=== PATIENT | female | born 1995 | race Caucasian/White ===

== ENCOUNTER 2017-07-22 10:44 | Day surgery (SDC) | payer OTHER ==
--- NOTE | 2017-07-21 08:42 | PDGENHP ---
History and Physical - Chief Complaint LEFT Hip Pain - History of Present Illness Diagnosis: 1. Bilateral~Femoroacetabular impingement (NINA) mixed-type on the Right, pincer-type remaining on Left with labral tear and cartilage damage 2. Left~Early Osteoarthritis HISTORY OF PRESENT ILLNESS: Merlinis a 22 y.o.~active female~who I have had the pleasure to consult on today. I have enjoyed meeting her. She~lives in [place]. 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 ~She~is single; she~has no~children. ~Merlinenjoys high jumping, lifting, running (lost college scholarship for high jumping because of hip). Catia's left~hip pain started May of 2015, with some~recalled trauma or injury, and with no~previous complaints. Merlindoes not have~a known history of hip dysplasia. No PT at that time, but had MRI and referred to [facility] who did hip scope 08/13 and then rehabbed after. Started running and felt great/ competing again at 3 and 6 months respectively. Then noted gradual return of anterior left groin pain - by September of 2016 was fully returned. MRI repeated and [facility] revision labral repair and pincer/cam resection. Did PT again and has not been able to return to running. Presentation today is of anterior left~hip pain.. ~The hip does~wake her~at night and does~click and catch on her. Sitting can be a real struggle~for her. Merlindoes not~report suffering from lower back pain episodes. Merlinhas~participated in physical therapy and has~tried other conservative measures including hip injections (last one 10/13 - 90% relief for 3 days only . She~has not~received sufficient symptomatic improvement. Merlinhas~utilized medication for pain management, including NSAID, OTC acetaminophen and Vicodin. Merlinhas stopped taking these all together now. Merlindenies issues with the right~hip. ~ Merlinunderstands that she~has a hip and pelvis problem which should be researched and wishes to get a better understanding of her~hip status, followed by an establishment of a treatment strategy, hoping she~would be able to get back to her~well being active life. History: Past medical history: ~ Patient ~has a past medical history of Anxiety; Asthma; Labral tear of hip, degenerative; Mandibular dysfunction; and PONV (postoperative nausea and vomiting). Relevant familial history: None which is relevant Past surgical history: R hip arthroscopy for psoas release - 2012, L hip artthroscopy labral repair 07/2015, revision L hip scope with labral repair 12/13/16 Catia~describes problematic issues with general anesthesia which includes PONV. I have reviewed, verified and agree with the past medical, surgical, family and social history. Current Medications:~has a current medication list which includes the following prescription(s): celecoxib, escitalopram oxalate, hydrocodone-acetaminophen, norethindrone ac-ethi estrad, ondansetron, and ondansetron. ALLERGIES:~has No Known Allergies. Objective: Physical Examination: Merlinis 5~feet 9~inches tall and weighs 160~Lbs. Merlinis AAO x3; she~is well -nourished, in NAD. Skin is warm and dry. ~Breathing is non-labored. CV with RRR by pulse. Abdomen is soft, NTND. Currently, she~walks with a normal~gait. Trendelenburg sign is positive~and proprioception is reduced, both~sides. She~presents with mild~signs of joint laxity. Beightons Score: 4 She~is fit looking. ~~ Lower spine examination is negative~for sciatic or femoral nerve irritation with negative~SLR &~femoral stretch tests. Range of motion of the spine is normal~for flexion, extension, and rotations, with no~associated pain. Strength, Sensation and pulses are normal, except reduced in L LFCN Ankles and knees exams are normal~and no~mal-alignment is evident. She~has no leg length discrepancy. Thigh circumference is symmetric~with no evidence for muscle atrophy~on both~ sides. Hip ROM (degrees): FL ER At 90~hip FL IR At 90~hip FL AB AD EX IR Neutral hip ER Neutral hip R 95 45 5 35 5 5 50 40 L 100(pain) 45 15 (pain) 35 5 5 55 35 Specific hip and pelvis tests: Impingement Test DALIA Roll Add. Longus R Negative Negative Negative Negative L +++ +++ Negative +++ Glut. Med ITB Posterior Imp R Negative 5/5 strength Negative 5/5 strength Negative L Negative 5/5 strength Negative 5/5 strength Negative Squeeze test measured weak Bony Symphysis pubis is pain free~to touch while concentric activity of the rectus abdominis, does not~produce pain at its insertion. Ilio Psos specific tests are positive for pain during cycling for the left hip~ and remarkable for painful snap HF has no pain both hips. - but weak on the left Anterior left~capsule tenderness only Greater trochanteric burse is pain free~on both hips. Piriformis tests: FAIR is negative, with no~local signs of neuritis related to sciatic nerve. SIJs examination is normal~with normal~DALIA in relation and local tenderness. Hamstrings tests are negative both hips. On a daily basis, the following percentages reflect Catia's overall total pain: Deep anterior~hip: 80% Adductors/IP: 20% Imaging: Radiology studies which I have personally reviewed, analyzed and measured are below: XR: AP of the hip and pelvis: Performed in a good~technique Coccyx to pubic symphysis distance 1.7~cm. 8~degrees cephal, 0 degrees in parenthesis [place] Lines are preserved. No~Pathological signs are seen in the Symphysis Pubis. No~Pathological signs are seen at the Ischial tuberosity. ~ Specific measurements show: NSA~ LCE Sourcil~Angle Sharp's angle Lat. Cam Lat. Pincer C.Over~sign Head~Coverage % ATDmm R 131 44 (47) -3 35 N + 1 o'clock 100 + L 128 45 (42) -10 36 N + 1 o'clock 91.3 + Pos. wall sign ISS NAD ~~Dysplasia Comments R Negative + 9.3~mm Negative L Negative Negative 14~mm Negative Sclerosis Sup. Lat. OA Cysts Joint Space-WBZ Joint Space-Medial R Negative Negative Negative 3.4~mm 3.6~mm L + + Negative 2.8~mm 3.4~mm X Table lateral: Anterior cam lesion is seen~on the right hip. Alpha Angle: ~ Right 58~dergrees Left 43~degrees MRI shows: 09/2016 - (from before revision hip scope) shows small pincer type labrum with tear. Some anterior cartilage damage and NARROWING with no subchondral cysts or edema. CT: no sub chondral cysts MEASUREMENTS: Right hip: Lateral center edge angle: 43 degrees Anterior center edge angle: 67 degrees Equ[place] acetabular version angle: 12 degrees anteverted. Cranial acetabular version angle: 3 degrees retroverted. Femoral neck shaft angle: 132 degrees Femoral neck version angle: Anteverted 11 degrees Femoral shaft torsion angle: Medialized 22 degrees Left hip: Lateral center edge angle: 40 degrees Anterior center edge angle: 59 degrees Equatorial acetabular version angle: 18 degrees anteverted. Cranial acetabular version angle: 5 degrees anteverted. Femoral neck shaft angle: 134 degrees Femoral neck version angle: Anteverted 8 degrees Femoral shaft torsion angle: Medialized 29 degrees Impression and plan: Merlinis a 22 y.o.~active female~suffering from symptomatic Left~hip pain due to Left~Femoroacetabular impingement (NINA) Pincer type, Cartilage damage~ causing significant disability to her~and altering her~sport and life activities. Physical examination, imaging, and her~story correspond with the diagnosis mentioned above. I explained that femoroacetabular impingement (NINA) arises due to a bony or soft tissue conflict between the femur (ball) and acetabulum (socket) caused by an abnormality in the shape of the hip joint. Over time, repetitive impingement can result in damage to the labrum and adjacent surface cartilage within the socket, ultimately giving rise to progressive osteoarthritis of the hip. I explained that although a labral tear can be a source of pain, it is rarely the root of the problem and typically occurs secondary to an underlying abnormality in the shape and mechanics of the hip joint. ~ I reviewed conservative treatment options for NINA including activity modification to avoid positions of impingement, physical therapy, non-steroidal anti-inflammatory medications, and various injections (corticosteroid and PRP) aimed at reducing inflammation in the hip joint or/and preventing dynamic impingement. PRP injections may promote healing and reduce symptoms in certain cases but it will not repair chronically damaged tissue. Although these measures may help to buy time and reduce current level of symptoms, they are not a definitive solution to the problem given the underlying abnormality in the shape of the hip joint. Patients who have failed conservative management or previous surgeries and continue to experience symptoms are candidates for revision hip arthroscopy, a minimally invasive surgery that can definitively address the underlying problem. Hip arthroscopy typically includes treating the labrum with either repair or reconstruction of the torn labrum; as well as addressing the underlying abnormalities by restoring the normal shape to the hip joint. ~If the cartilage is damaged a Microfracture~surgical procedure may also be necessary to help stimulate the growth of fibrocartilage. ~If a patient requires a labral reconstruction or a Microfracture, the initial rehabilitation from the surgery may take longer, but the termite helper results are typically favorable. I reviewed the technical aspects of hip arthroscopy including risks, benefits, and expected course of recovery. Catia understands that hip arthroscopy is a minimally invasive outpatient procedure carried out through small incisions on the outer aspect of the hip joint. During surgery, the labral tear will be identified and either repaired or reconstructed using bone anchors and suture material. Additionally, any excessive bone will be removed with a high-speed urmila to reshape the hip joint and restore normal anatomy. Risks include infection, bleeding, injury to nearby nerves or vessels, stiffness, persistent pain, instability, venous thromboembolic disease, and traction related complications including temporary foot numbness. Rarely, revision surgery may be required to address these problems. Overall recovery takes approximately 4 8 months depending on the extent of damage and degree of repair. In the event that the labral tissue quality is inadequate for successful repair and healing, Catia understands that a labral reconstruction will be performed. This procedure entails placing a cadaver tissue graft within the hip joint and stabilizing it with bone anchors to build a new labrum. The overall recovery time for labral reconstruction is similar to that of labral repair, although the surgical procedure takes longer to perform. Catia~will review the info presented. In order to obtain more detailed information regarding the alignment, orientation, and shape of the bony hip and pelvis I will order a CT scan to be performed. The results of the CT scan, including femoral torsion and acetabular version measured values and 3D images, will aid me in deciding on the best treatment strategy and surgical pre-planning. Catia is going to think about her options and get back to us. Catia~is happy with this plan. I have also supplied her~with handouts, outlining the expected surgical treatment and rehab involved. I wish~Catia~all the best, ~~ Olga Merritt MD History Information - Allergies/Home Medication List Allergies/Adverse Reactions: No Known Allergies Allergy (Unverified 06/30/17 10:31) Home Medications: Lexapro 06/30/17 [Last Taken Unknown] Microgestin 06/30/17 [Last Taken Unknown] I have personally reviewed and updated: medical history - Social History Smoking Status: Never smoked Review of Systems Review of Systems: Physical Exam Physical Exam:
[~2017-07-22 10:44] MED LIST: ACETAMINOPHEN 500 MG TAB PO ONE; PREGABALIN 150 MG CAP PO ONE; ceFAZolin 2 GM/SWFI 2 GM/20 ML SYR IVP ONE
[2017-07-22] MEDS ORDERED: fentaNYL 100 MCG/2 ML INJ ONE ×3 (10:50→15:33)
[2017-07-22] MEDS ORDERED: PROPOFOL 200 MG/20 ML VIAL ONE (10:50)
[2017-07-22] MEDS ORDERED: PROPOFOL/EMULSION 500 MG/50 ML BOTTLE IV ONE ×2 (10:50→14:02)
[2017-07-22] MEDS ORDERED: LR 1,000 ML IV ONE (10:50)
[2017-07-22] MEDS ORDERED: ROCURONIUM 50 MG/5 ML VIAL ONE (10:52)
[2017-07-22] MEDS ORDERED: LIDOCAINE 2% 5 ML SDV ONE (10:52)
[2017-07-22] MEDS ORDERED: SCOPOLAMINE HYDROBROMIDE 1 MG/3 DAYS PATCH TD ONE (10:56)
[2017-07-22] MEDS ORDERED: MIDAZOLAM 2 MG/2 ML VIAL ONE (11:05)
[2017-07-22] MEDS ORDERED: MIDAZOLAM 2 MG/2 ML VIAL IVP ONE (11:09)
--- NOTE | 2017-07-22 11:09 | PDANEPAE ---
ANE History of Present Illness 22 year old female for hip scope. ANE Past Medical History - Cardiovascular History Hx Hypertension: No Hx Arrhythmias: No Hx Chest Pain: No Hx Coronary Artery / Peripheral Vascular Disease: No Hx CHF / Valvular Disease: No Hx Palpitations: No - Pulmonary History Hx COPD: No Hx Asthma/Reactive Airway Disease: Yes Hx Recent Upper Respiratory Infection: No Hx Oxygen in Use at Home: No Hx Sleep Apnea: No Sleep Apnea Screening Result - Last Documented: Negative Pulmonary History Comment: CHILDHOOD ASTHMA - Neurologic History Hx Cerebrovascular Accident: No Hx Seizures: No Hx Dementia: No - Endocrine History Hx Diabetes: No Hypothyroid: No Hyperthyroid: No Obesity: no - Renal History Hx Renal Disorders: No - Liver History Hx Hepatic Disorders: No - Neurological & Psychiatric Hx Hx Neurological and Psychiatric Disorders: Yes Neurological / Psychiatric History Comment: ANXIETY - Cancer History Hx Cancer: No - Congenital Disorder History Hx Congenital Disorders: No - GI History Hx Gastrointestinal Disorders: No - Other Health History Other Health History: NEG - Chronic Pain History Chronic Pain: Yes (L HIP) - Surgical History Prior Surgeries: R HIP SCOPE. L HIP SCOPE X2. WISDOM ANE Review of Systems Review of systems is: negative Review of Systems: - Exercise capacity Exercise capacity: >=4 METS METS (RN): 6 METS ANE Patient History - Allergies Allergies/Adverse Reactions: No Known Allergies Allergy (Verified 07/22/17 11:01) - Home Medications Home medications: home medication list seen and reviewed Home Medications: Lexapro 06/30/17 [Last Taken Unknown] Microgestin 06/30/17 [Last Taken Unknown] - NPO status NPO Status: no food or drink >8 hours NPO Since - Liquids (Date): 07/21/17 NPO Since - Liquids (Time): 23:00 NPO Since - Solids (Date): 07/21/17 NPO Since - Solids (Time): 19:00 - Anes Hx Anes Hx: post operative nausea and vomiting - Smoking Hx Smoking Status: Never smoked Marijuana use: No - Family Anes Hx Family Anes Hx: neg - N/A Family Hx Anesthesia Complications: FATHER AWAKENS VERY SLOWLY ANE Labs/Vital Signs - Vital Signs Vital Signs: reviewed preoperatively; see RN documention for details Blood Pressure: 127/85 Heart Rate: 75 Respiratory Rate: 16 O2 Sat (%): 99 Height: 177.8 cm Weight: 74.843 kg ANE Physical Exam - Airway Neck exam: FROM Mallampati Score: Class 1 Mouth exam: normal dental/mouth exam - Pulmonary Pulmonary: no respiratory distress - Cardiovascular Cardiovascular: regular rate and rhythym - ASA Status ASA Status: II ANE Anesthesia Plan Anesthesia Plan: general endotracheal anesthesia Total IV Anesthesia: No
[2017-07-22] MEDS ORDERED: BUPIVACAINE 0.25% 30 ML SDV ONE (11:23)
[2017-07-22] MEDS ORDERED: EPINEPHrine 30 MG/30 ML MDV (0.1 MG/0.1 ML) ONE (11:23)
[2017-07-22] MEDS ORDERED: DEXAMETHASONE 4 MG/ML VIAL ONE (11:52)
[2017-07-22] MEDS ORDERED: ONDANSETRON 4 MG/2 ML VIAL ONE (11:52)
[2017-07-22] MEDS ORDERED: HYDROmorphONE/DILAUDID 2 MG/ML INJ ONE ×2 (14:32→16:03)
[2017-07-22] MEDS ORDERED: PROMETHAZINE HCL 25 MG/ML INJ IVP PRN (14:35)
[2017-07-22] MEDS ORDERED: LR 500 ML IV PRN (14:35)
[2017-07-22] MEDS ORDERED: PHENYLEPHRINE HCL 100 MCG/ML SYR IVP PRN (14:35)
[2017-07-22] MEDS ORDERED: NALOXONE HCL 0.4 MG/ML INJ IVP PRN (14:35)
[2017-07-22] MEDS ORDERED: HYDROmorphONE/DILAUDID 1 MG/ML INJ IVP PRN (14:35)
[2017-07-22] MEDS ORDERED: DIAZEPAM 5 MG/ML 1 ML SYR IVP PRN (14:35)
[2017-07-22] MEDS ORDERED: ONDANSETRON 4 MG/2 ML VIAL IVP PRN (14:35)
[2017-07-22] MEDS: fentaNYL 100 MCG/2 ML INJ IVP PRN ×2 (15:39→15:47)
[2017-07-22] MEDS: HYDROmorphONE/DILAUDID 2 MG/ML INJ IVP PRN ×3 (16:10→16:49)
[2017-07-22 16:29] VITALS: TEMP 97.9
[2017-07-22 16:43] VITALS: O2SAT 100
[2017-07-22 17:11] VITALS: BP 110/70; PULSE 73; RESP 14
[2017-07-22] MEDS ORDERED: HYDROCODONE/APAP 5/325 TAB PO PRN (17:17)
--- NOTE | 2017-07-22 20:55 | POSTANESTH ---
Post Anesthetic Evaluation Cardiovascular Status: Normal, Stable, Similar to Pre-Op Cond Respiratory Status: Normal, Stable, Similar to Pre-op Cond. Level of Consciousness/Mental Status: Can Participate in Eval, Alert and Oriented Pain Control: Adequate, Prn Tx Ordered Nausea/Vomiting Control: Adequate, Prn Tx Ordered Complications Possibly Related to Anesthesia: None Noted
== END 2017-07-22 18:00 | disposition home or self-care (01) ==
LOC: FSGY 10:44
PROVIDERS: ATTEND Orthopaedic Surgery Sports Medicine
PROC: 0SBB4ZZ Excision of Left Hip Joint, Percutaneous Endoscopic Approach (ICD-10-PCS; principal; 2017-07-22 08:30)
PROC: 0SQB4ZZ Repair Left Hip Joint, Percutaneous Endoscopic Approach (ICD-10-PCS; principal; 2017-07-22 08:30)
DX: M25.852 Other specified joint disorders, left hip (principal); M16.12 Unilateral primary osteoarthritis, left hip
CPT/HCPCS: C1713; C1762; J0171; J0690; J1100; J1170; J2250; J2405; J2704; J3010

== ENCOUNTER 2018-02-27 10:40 | Day surgery (SDC) | payer OTHER ==
--- NOTE | 2018-02-26 21:33 | PDGENHP ---
History and Physical - Chief Complaint LEFT HIP PAIN - History of Present Illness Diagnosis: 1. Bilateral~Femoroacetabular impingement (NINA) mixed-type on the Right, pincer-type remaining on Left with labral tear and cartilage damage 2. Left~Early Osteoarthritis HISTORY OF PRESENT ILLNESS: Merlinis a 22 y.o.~active female~who I have had the pleasure to consult on today. I have enjoyed meeting her.~She~lives in [place].~~Catia~ nazario in college.~~She~is single;~she~has no~children. ~Merlinenjoys high jumping, lifting, running (lost college scholarship for high jumping because of hip). Catia's~left~hip pain started May of 2015, with~some~recalled trauma or injury, and with no~previous complaints. Merlindoes not have~a known history of hip dysplasia. No PT at that time, but had MRI and referred to [facility] who did hip scope 08/13 and then rehabbed after. Started running and felt great/ competing again at 3 and 6 months respectively. Then noted gradual return of anterior left groin pain - by September of 2016 was fully returned. MRI repeated and [facility] revision labral repair and~pincer/cam resection. Did PT again and has not been able to return to running. Presentation today is of~anterior~left~hip pain.. ~The hip~does~wake her~at night and does~click and catch on her. Sitting~can be a real struggle~for her.~ Merlindoes not~report suffering from lower back pain episodes. Merlinhas~participated in physical therapy and has~tried other conservative measures including hip injections~(last one 10/13 - 90% relief for 3 days only~.~ She~has not~received sufficient symptomatic improvement. Merlinhas~utilized medication for pain management, including NSAID, OTC acetaminophen and Vicodin.~Merlinhas stopped taking these all together now. Merlindenies issues with the right~hip. ~ Merlinunderstands that she~has a hip and pelvis problem which should be researched and wishes to get a better understanding of her~hip status, followed by an establishment of a treatment strategy, hoping she~would be able to get back to her~well being active life. History: Past medical history:~~ Patient~~has a past medical history of Anxiety; Asthma; Labral tear of hip, degenerative; Mandibular dysfunction; and PONV (postoperative nausea and vomiting). Relevant familial history:~None which is relevant~ Past surgical history:~ R hip arthroscopy for psoas release - 2012, L hip artthroscopy labral repair 07/2015, revision L hip scope with labral repair 12/13/16 Catia~describes problematic issues with general anesthesia which includes PONV. I have reviewed, verified and agree with the past medical, surgical, family and social history. Current Medications:~has a current medication list which includes the following prescription(s): celecoxib, escitalopram oxalate, hydrocodone-acetaminophen, norethindrone ac-ethi estrad, ondansetron, and ondansetron. ALLERGIES:~has No Known Allergies. Objective: Physical Examination: Merlinis 5~feet 9~inches tall and weighs 160~Lbs. Merlinis AAO x3; she~is well -nourished, in NAD. Skin is warm and dry. ~Breathing is non-labored. CV with RRR by pulse. Abdomen is soft, NTND. Currently,~she~walks with a normal~gait. Trendelenburg sign is~positive~and proprioception is reduced,~both~sides. She~presents with mild~signs of joint laxity. Beightons Score:~4 She~is fit looking. ~~ Lower spine examination is~negative~for sciatic or femoral nerve irritation with negative~SLR &~femoral stretch tests. Range of motion of the spine is normal~for flexion, extension, and rotations, with no~associated pain. Strength, Sensation and pulses are~normal, except reduced in L LFCN Ankles and knees exams are~normal~and no~mal-alignment is evident. She~has no leg length discrepancy. Thigh circumference is~symmetric~with no evidence for muscle atrophy~on both~ sides. Hip ROM (degrees): FL ER At 90~hip FL IR At 90~hip FL AB AD EX IR Neutral hip ER Neutral hip R 95 45 5 35 5 5 50 40 L 100(pain) 45 15 (pain) 35 5 5 55 35 Specific hip and pelvis tests: Impingement Test DALIA Roll Add. Longus R Negative Negative Negative Negative L +++ +++ Negative +++ Glut. Med ITB Posterior Imp R Negative 5/5 strength Negative 5/5 strength Negative L Negative 5/5 strength Negative 5/5 strength Negative Squeeze test measured~weak Bony Symphysis pubis is~pain free~to touch while concentric activity of the rectus abdominis, does not~produce pain at its insertion. Ilio Psos specific tests are~positive for pain during cycling for~the left hip~ and remarkable for painful snap HF has~no pain~both hips.~- but weak on the left Anterior left~capsule tenderness only Greater trochanteric burse is~pain free~on both hips. Piriformis tests: FAIR is~negative,~with no~local signs of neuritis related to sciatic nerve. SIJs examination is~normal~with normal~DALIA in relation and local tenderness. Hamstrings tests are~negative~both hips. On a daily basis, the following percentages reflect~Catia's overall total pain: Deep~anterior~hip: 80% Adductors/IP: 20% Imaging: Radiology studies which I have personally reviewed, analyzed and measured are below: XR: AP of the hip and pelvis: Performed in a~good~technique Coccyx to pubic symphysis distance~1.7~cm. 8~degrees cephal, 0 degrees in parenthesis~ [place] Lines are~preserved. No~Pathological signs are seen in the Symphysis Pubis. No~Pathological signs are seen at the Ischial tuberosity. ~ Specific measurements show: NSA~ LCE Sourcil~Angle Sharp's angle Lat. Cam Lat. Pincer C.Over~sign Head~Coverage % ATDmm R 131 44 (47) -3 35 N + 1 o'clock 100 + L 128 45 (42) -10 36 N + 1 o'clock 91.3 + Pos. wall sign ISS NAD ~~Dysplasia Comments R Negative + 9.3~mm Negative L Negative Negative 14~mm Negative Sclerosis Sup. Lat. OA Cysts Joint Space-WBZ Joint Space-Medial R Negative Negative Negative 3.4~mm 3.6~mm L + + Negative 2.8~mm 3.4~mm X Table lateral: Anterior cam lesion is~seen~on the right hip. Alpha Angle: ~ Right~58~dergrees Left~43~degrees MRI shows:~09/2016 - (from before revision hip scope) shows small~pincer type~ labrum with tear. Some anterior cartilage damage~and NARROWING~with no subchondral cysts or edema.~ CT: no sub chondral cysts MEASUREMENTS: Right hip: Lateral center edge angle: 43 degrees Anterior center edge angle: 67 degrees Equatorial acetabular version angle: 12 degrees anteverted. Cranial acetabular version angle: 3 degrees retroverted. Femoral neck shaft angle: 132 degrees Femoral neck version angle: Anteverted 11 degrees Femoral shaft torsion angle: Medialized 22 degrees Left hip: Lateral center edge angle: 40 degrees Anterior center edge angle: 59 degrees Equatorial acetabular version angle: 18 degrees anteverted. Cranial acetabular version angle: 5 degrees anteverted. Femoral neck shaft angle: 134 degrees Femoral neck version angle: Anteverted 8 degrees Femoral shaft torsion angle: Medialized 29 degrees Impression and plan:~ Catia~is a 22 y.o.~active female~suffering from symptomatic Left~hip pain due to Left~Femoroacetabular impingement (NINA) Pincer type, Cartilage damage~ causing significant disability to her~and altering her~sport and life activities. Physical examination, imaging, and her~story correspond with the diagnosis mentioned above. I explained that femoroacetabular impingement (NINA) arises due to a bony or soft tissue conflict between the femur (ball) and acetabulum (socket) caused by an abnormality in the shape of the hip joint. Over time, repetitive impingement can result in damage to the labrum and adjacent surface cartilage within the socket, ultimately giving rise to progressive osteoarthritis of the hip. I explained that although a labral tear can be a source of pain, it is rarely the root of the problem and typically occurs secondary to an underlying abnormality in the shape and mechanics of the hip joint. ~ I reviewed conservative treatment options for NINA including activity modification to avoid positions of impingement, physical therapy, non-steroidal anti-inflammatory medications, and various injections (corticosteroid and PRP) aimed at reducing inflammation in the hip joint or/and preventing dynamic impingement. PRP injections may promote healing and reduce symptoms in certain cases but it will not repair chronically damaged tissue. Although these measures may help to buy time and reduce current level of symptoms, they are not a definitive solution to the problem given the underlying abnormality in the shape of the hip joint. Patients who have failed conservative management~or previous surgeries~and continue to experience symptoms are candidates for~revision~hip arthroscopy, a minimally invasive surgery that can definitively address the underlying problem. Hip arthroscopy typically includes treating the labrum with either repair or reconstruction of the torn labrum; as well as addressing the underlying abnormalities by restoring the normal shape to the hip joint. ~If the cartilage is damaged a Microfracture~surgical procedure may also be necessary to help stimulate the growth of fibrocartilage. ~If a patient requires a labral reconstruction or a Microfracture, the initial rehabilitation from the surgery may take longer, but the intermodal customer service results are typically favorable. I reviewed the technical aspects of hip arthroscopy including risks, benefits, and expected course of recovery. Catia understands that hip arthroscopy is a minimally invasive outpatient procedure carried out through small incisions on the outer aspect of the hip joint. During surgery, the labral tear will be identified and either repaired or reconstructed using bone anchors and suture material. Additionally, any excessive bone will be removed with a high-speed urmila to reshape the hip joint and restore normal anatomy. Risks include infection, bleeding, injury to nearby nerves or vessels, stiffness, persistent pain, instability, venous thromboembolic disease, and traction related complications including temporary foot numbness. Rarely, revision surgery may be required to address these problems. Overall recovery takes approximately 4 8 months depending on the extent of damage and degree of repair. In the event that the labral tissue quality is inadequate for successful repair and healing, Catia understands that a labral reconstruction will be performed. This procedure entails placing a cadaver tissue graft within the hip joint and stabilizing it with bone anchors to build a new labrum. The overall recovery time for labral reconstruction is similar to that of labral repair, although the surgical procedure takes longer to perform. Catia~will review the info presented. In order to obtain more detailed information regarding the alignment, orientation, and shape of the bony hip and pelvis I will order a CT scan to be performed. The results of the CT scan, including femoral torsion and acetabular version measured values and 3D images, will aid me in deciding on the best treatment strategy and surgical pre-planning. Catia is going to think about her options and get back to us. Catia~is happy with this plan. I have also supplied~her~with handouts, outlining the expected surgical treatment and rehab involved. I wish~Catia~all the best, ~~ Olga Merritt MD History Information - Allergies/Home Medication List Allergies/Adverse Reactions: No Known Allergies Allergy (Verified 07/22/17 11:01) Home Medications: Lexapro HS 06/30/17 [Last Taken Unknown] I have personally reviewed and updated: medical history - Social History Smoking Status: Never smoked Review of Systems Review of Systems: Physical Exam Physical Exam:
[2018-02-27] MEDS ORDERED: ceFAZolin 2 GM/DEXTROSE 100 ML IV ONE (10:52)
[2018-02-27] MEDS ORDERED: ACETAMINOPHEN 500 MG TAB PO ONE (10:52)
[2018-02-27] MEDS ORDERED: PREGABALIN 150 MG CAP PO ONE (10:52)
[2018-02-27] MEDS ORDERED: LR 1,000 ML IV ONE (10:53)
[2018-02-27] MEDS ORDERED: LIDOCAINE 1% 2 ML INJ ID PRN (10:53)
[2018-02-27] MEDS ORDERED: EPINEPHrine 30 MG/30 ML MDV (0.1 MG/0.1 ML) ONE (14:54)
[2018-02-27] MEDS ORDERED: BUPIVACAINE 0.25% 30 ML SDV ONE (14:54)
[2018-02-27] MEDS ORDERED: MIDAZOLAM 2 MG/2 ML VIAL IVP ONE ×2 (17:03→19:52)
--- NOTE | 2018-02-27 17:06 | PDANEPAE ---
ANE History of Present Illness 22 year old for left hip scope ANE Past Medical History - Cardiovascular History Hx Hypertension: No Hx Arrhythmias: No Hx Chest Pain: No Hx Coronary Artery / Peripheral Vascular Disease: No Hx CHF / Valvular Disease: No Hx Palpitations: No - Pulmonary History Hx COPD: No Hx Asthma/Reactive Airway Disease: No Hx Recent Upper Respiratory Infection: No Hx Oxygen in Use at Home: No Hx Sleep Apnea: No Sleep Apnea Screening Result - Last Documented: Negative Pulmonary History Comment: CHILDHOOD ASTHMA NOT AN ISSUES FOR MANY YEARS - Neurologic History Hx Cerebrovascular Accident: No Hx Seizures: No Hx Dementia: No - Endocrine History Hx Diabetes: No - Renal History Hx Renal Disorders: No - Liver History Hx Hepatic Disorders: No - Neurological & Psychiatric Hx Hx Neurological and Psychiatric Disorders: Yes Neurological / Psychiatric History Comment: ANXIETY - Cancer History Hx Cancer: No - Congenital Disorder History Hx Congenital Disorders: Yes Congenital History Comment: FELICITY HIPS - GI History Hx Gastrointestinal Disorders: No - Other Health History Other Health History: NEG - Chronic Pain History Chronic Pain: Yes (L HIP) - Surgical History Prior Surgeries: LT HIP SCOPE/LABRAL REPAIR/ACETABUL 06/2017. R HIP SCOPE. L HIP SCOPE X2. WISDOM ANE Review of Systems Review of systems is: negative Review of Systems: - Exercise capacity METS (RN): 4 METS ANE Patient History - Allergies Allergies/Adverse Reactions: No Known Allergies Allergy (Verified 07/22/17 11:01) - Home Medications Home Medications: Lexapro HS 06/30/17 [Last Taken 1 Day Ago ~02/26/18] - NPO status NPO Since - Liquids (Date): 02/27/18 NPO Since - Liquids (Time): 09:00 NPO Since - Solids (Date): 02/26/18 NPO Since - Solids (Time): 21:00 - Anes Hx Anes Hx: post operative nausea and vomiting - Smoking Hx Smoking Status: Never smoked - Family Anes Hx Family Hx Anesthesia Complications: FATHER AWAKENS VERY SLOWLY ANE Labs/Vital Signs - Vital Signs Blood Pressure: 119/80 Heart Rate: 64 Respiratory Rate: 16 O2 Sat (%): 99 Height: 177.8 cm Weight: 74.843 kg ANE Physical Exam - Airway Neck exam: FROM Mallampati Score: Class 1 Mouth exam: normal dental/mouth exam - Pulmonary Pulmonary: no respiratory distress - Cardiovascular Cardiovascular: regular rate and rhythym - ASA Status ASA Status: I ANE Anesthesia Plan Anesthesia Plan: general endotracheal anesthesia
[2018-02-27] MEDS ORDERED: MIDAZOLAM 2 MG/2 ML VIAL ONE ×2 (17:07→20:03)
[2018-02-27] MEDS ORDERED: SCOPOLAMINE HYDROBROMIDE 1 MG/3 DAYS PATCH TD ONE (17:09)
[2018-02-27] MEDS ORDERED: SCOPOLAMINE HYDROBROMIDE 1 MG/3 DAYS PATCH TD SCH (17:15)
[2018-02-27] MEDS ORDERED: fentaNYL 100 MCG/2 ML INJ ONE ×2 (17:15→19:46)
[2018-02-27] MEDS ORDERED: PROPOFOL 200 MG/20 ML VIAL ONE (17:15)
[2018-02-27] MEDS ORDERED: ROCURONIUM 50 MG/5 ML VIAL ONE (17:18)
[2018-02-27] MEDS ORDERED: oxyCODONE IR 5 MG TAB PO PRN (19:34)
[2018-02-27] MEDS ORDERED: PROMETHAZINE HCL 25 MG/ML INJ IVP PRN (19:34)
[2018-02-27] MEDS ORDERED: NALOXONE HCL 0.4 MG/ML INJ IVP PRN (19:34)
[2018-02-27] MEDS ORDERED: ONDANSETRON 4 MG/2 ML VIAL IVP PRN (19:34)
[2018-02-27] MEDS ORDERED: MEPERIDINE 25 MG/0.5 ML AMP IVP PRN (19:47)
[2018-02-27] MEDS: fentaNYL 100 MCG/2 ML INJ IVP PRN ×2 (19:48→19:57)
[2018-02-27] MEDS ORDERED: MEPERIDINE 25 MG/0.5 ML AMP ONE (19:48)
--- NOTE | 2018-02-27 19:49 | POSTANESTH ---
Post Anesthetic Evaluation Cardiovascular Status: Normal, Stable Respiratory Status: Normal, Stable Level of Consciousness/Mental Status: Can Participate in Eval Pain Control: Inadeq, Add Tx Required Nausea/Vomiting Control: Adequate, Prn Tx Ordered Complications Possibly Related to Anesthesia: None Noted
--- NOTE | 2018-02-27 19:56 | POSTOPPROG ---
Post Op Note Date of Operation: 02/27/18 Surgeon: Virgilio Dickerson [employer] Aide: Annabelle York Pre-op Diagnosis: L IP bursitis Post-op Diagnosis: Same Procedure: Arthroscopic L hip IP release Inf/Abcess present in the surg proc area at time of surgery?: No EBL: Minimal
[2018-02-27] MEDS ORDERED: HYDROmorphONE/DILAUDID 2 MG/ML INJ ONE (20:01)
[2018-02-27] MEDS: HYDROmorphONE/DILAUDID 2 MG/ML INJ IVP PRN ×3 (20:02→20:38)
[2018-02-27] MEDS ORDERED: PETROLAT,WHT/MIN OIL/SOD CHL 3.5 GM OPHT.OINT EACHEYE SCH (21:00)
[2018-02-27 21:52] VITALS: BP 125/73
[2018-02-27] MEDS ORDERED: oxyCODONE IR 5 MG TAB ONE (21:55)
[2018-03-02] MEDS ORDERED: PATCH REMOVAL 1 EA PATCH TD SCH (17:07)
== END 2018-02-27 22:34 | disposition home or self-care (01) ==
LOC: FSGY 10:40 → UNDOADMIN 10:40 → F3N 10:40 → EDSTATUS 11:45 → FSGY 22:34
PROVIDERS: ATTEND Orthopaedic Surgery Sports Medicine
PROC: 0LN Tendons, Release (ICD-10-PCS; principal; 2018-02-27 12:30)
DX: M70.62 Trochanteric bursitis, left hip (principal); M25.552 Pain in left hip; F41.9 Anxiety disorder, unspecified; J45.909 Unspecified asthma, uncomplicated
CPT/HCPCS: C1713; J0171; J0690; J1170; J2175; J2250; J2704; J3010